=== PATIENT | male | born 1945 | race Caucasian/White ===

== ENCOUNTER 2019-03-20 13:41 | Outpatient (CLI) | payer MEDICARE, SELFPAY ==
--- NOTE | ~2019-03-20 | XR_ITS ---
EXAMINATION: XR lg joint inject/asp w image EXAM DATE: 03/20/2019 14:59 INDICATION: Left hip pain. TECHNIQUE: A time-out was performed to verify the patient's name, date of , and procedure to b e performed. The procedure including the risks, benefits and alternatives were discussed with the pat ient. Risks discussed included bleeding and infection. The patient understood the risks and agreed to proceed. The skin overlying the left hip joint was prepped and draped in usual sterile fashion. Ane sthetic was administered with 2 milliliters 1% lidocaine subcutaneously. A 22 G needle was advanced under fluoroscopic guidance into the joint. Total of 2 mL of Omnipaque 240 confirmed intra-articul ar position of the needle. Subsequently, injectate consisting of 80 mg Depo-Medrol, 2 cc 0.5% bupiva kaitlynn was instilled. The needle was removed and the entry site was cleaned and dressed. There were no immediate complications. The DAP for this procedure was 0.3 Gycm2. The procedure was performed on 03/20/2019. FINDINGS: Real-time fluoroscopy demonstrates the needle and contrast in the left hip joint. Preprocedure pain level reported 8/10. Postprocedure pain level reported 5/10. IMPRESSION: Successful left hip joint injection. Reviewed, dictated and finalized at location A. PRESIDENT PAYMENT
== END 2019-03-20 13:42 | disposition home or self-care (01) ==
PROVIDERS: PCP Internal Medicine; Visit Provider Orthopaedic Surgery
DX: M16.12 Unilateral primary osteoarthritis, left hip (principal)
CPT/HCPCS: 20610; 77002; J1040; Q9966

== ENCOUNTER 2020-04-15 15:01 | Outpatient (CLI) | payer MEDICARE, SELFPAY | END 2020-04-15 15:02 | disposition home or self-care (01) | LOC: ANHCOVIDVC 15:01 | PROVIDERS: PCP Internal Medicine | DX: Z23 Encounter for immunization (principal) | CPT/HCPCS: 0001A; 91300 ==

== ENCOUNTER 2020-05-03 10:43 | Outpatient (CLI) | payer MEDICARE, SELFPAY ==
--- NOTE | ~2020-05-03 | XR_ITS ---
XR_CERV2-3V_CR DATE: 05/03/2020 10:58 INDICATION: Neck pain. No injury. TECHNIQUE: AP, open-mouth, lateral views COMPARISON: None FINDINGS: There is straightening of the cervical spine. C1 and C2 are normally aligned and the odontoid process is intact. No fracture or dislocation or lock ed facet or prevertebral soft tissue swelling is detected. There is minimal anterolisthesis at C2-3 and C5-6. There is moderate to moderately severe degenerative disc disease at C3-4 through C7-T1. There is degenerative change of the apophyseal joints. IMPRESSION: Straightening Cervical spondylosis Reviewed, dictated and finalized at Location A. Reviewed, dictated and finalized at location B.
== END 2020-05-03 10:44 | disposition home or self-care (01) ==
LOC: ANHIMG 10:46
PROVIDERS: PCP Internal Medicine; Visit Provider Nurse Practitioner
DX: M47.812 Spondylosis without myelopathy or radiculopathy, cervical region (principal)
CPT/HCPCS: 72040

== ENCOUNTER 2020-05-06 15:18 | Outpatient (CLI) | payer MEDICARE, SELFPAY | END 2020-05-06 15:19 | disposition home or self-care (01) | LOC: ANHCOVIDVC 15:18 | PROVIDERS: PCP Internal Medicine | DX: Z23 Encounter for immunization (principal) | CPT/HCPCS: 0002A; 91300 ==

== ENCOUNTER 2020-06-08 08:00 | Outpatient (RCR) | payer MEDICARE, SELFPAY ==
--- NOTE | 2020-05-11 10:09 | PTOPEVAL ---
PHYSICAL THERAPY EVALUATION AND PLAN OF CARE 05-11-20 Thank you for referring Doron Harley to [facility] for the diagnosis of cervicalgia. ? He is scheduled to be seen for therapy? 2 x/week for 4 weeks. Please review, sign, date and return this plan of care CARLOS EDUARDO. I agree with and certify that the following plan of care is medically necessary. Referring Physician Date Attending Provider: Maikel Jj DO Referring Provider: TONY Eddy PT Outpatient Evaluation Document 05/11/20 09:00 JANNETH (Rec: 05/11/20 10:09 JANNETH [id number]) Outpatient Past Medical History Past Medical History Source of Past Medical History Patient Neurological History Hx Neurological Disorders No Significant History Cardiovascular History Hx Hypertension Yes: meds Respiratory History Hx Respiratory Disorders No Significant History Gastrointestinal History Hx Gastrointestinal Disorders No Significant History Musculoskeletal History Hx Spinal Surgery Yes: cervical disc removed > 30 yr ago Endocrine History Hx Diabetes Yes: meds HEENT History Hx Other HEENT Disorders Yes: hearing aides, glasses Other History Hx Other Surgeries Yes: 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,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 Evaluation Information Problem Diagnosis cervicalgia Onset April Subjective Information gradual increase in pain, has Query Text:As Reported By Patient/ been helping his due to Family her disability, he has to assist her and move her; pain he has is like pain he had previously when had neck surgery; Diagnostic Tests X-Rays For This Problem Yes: straightening of curve, mod to severe DDD C 3-4 thru C7-T1 Previous Treatments Previous Treatments For This Problem no PT Prior Level of Function Activity Level (Last 3 Months) 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
--- NOTE | 2020-06-08 08:35 | PTOPEVAL ---
PHYSICAL THERAPY DISCHARGE 06-08-20 Refer to the clinical summary below for his status with today's discharge, compared to initial eval. The PT goals were achieved. Discharge PT services at this time. Thank you for referring Doron Harley to [facility].? Please review, sign, date and return this Discharge report CARLOS EDUARDO. I agree with and certify that the following plan of care is medically necessary. Referring Physician Date Attending Provider: Maikel Jj DO Document 06/08/20 08:00 JANNETH (Rec: 06/08/20 08:35 JANNETH [id number]) Assessment Status Discharge Subjective Information Doron reports: is doing better Query Text:As Reported By Patient/ ; can do all his home chores Family and go all day without stopping due to neck pain; doing home exercises; not taking any medicine for neck pain; agree to discharge from PT services; Pain Assessment Timing of Pain Assessment Timing of Pain Assessment Assessment Pain Scale Pain Scale Used Numeric (1 - 10) Self Report Pain Assessment Bilateral Spine, Cervical Reported Pain Level 0 Pain Description Aching,Dull,Sharp Pain Frequency Chronic,Intermittent Lowest Pain Intensity 0 Greatest Pain Intensity 4 Pain Behaviors None Pain Score Pain Score 0: Self Report Additional Pain Score Comments sleeping OK and not having any problems doing things at home ; Oswestry self assessment functional score of 6% limitation have not been doing much lifting, to protect neck and not make it flare up; discussed/reviewed options for pain management: rest, heat, stretching, use of Theracane/ self massage tool for tight muscles; pt voiced understanding; Interventions Used Interventions Used By Clinicians Education,Exercise Upper Extremity Range of Motion General Upper Extremity Range of Motion Gross Upper Extremity Range of Motion standing R shoulder flexion Comments 125', abduction 130'; IR- reach behind back, palm to waist; ER- reach palm to back of head; no pain with shoulder motions; cervical: active rotation R & L 40', without pain, but
== END 2020-06-08 10:38 | disposition home or self-care (01) ==
LOC: ANHPT 08:00
PROVIDERS: PCP Internal Medicine; Visit Provider Internal Medicine
DX: M54.2 Cervicalgia (principal)
CPT/HCPCS: 97014; 97110; 97140; 97162; G0283

== ENCOUNTER → 2021-01-13 04:14 | Outpatient (CLI) | payer MEDICARE, SELFPAY ==
[2021-01-13 17:37] LABS: SARS-CoV-2 RNA PCR Negative
== END ==
PROVIDERS: PCP Internal Medicine; Visit Provider Internal Medicine
DX: Z20.822 Contact with and (suspected) exposure to COVID-19 (principal)
CPT/HCPCS: C9803; U0003; U0005

== ENCOUNTER 2022-09-01 00:22 | Day surgery (SDC) | payer MEDICARE, SELFPAY ==
[2022-08-22 13:19] VITALS: BMI 26.2
--- NOTE | 2022-09-01 07:32 | WPDANESEPPF ---
Anes - Initial Pre Proc Eval Procedure: Operation Date: 09/01/22 08:30 Proposed Procedures p Screening Colonoscopy - Tao Benavides MD Date/Time: 09/01/22 07:32 Surgeon: Tao Benavides MD Pre Op Diagnosis: neoplasm screening Patient Data Age: 77 Gender: M Height: 1.7 m Weight: 76 kg Allergies Allergy/AdvReac Type Severity Reaction Status Date / Time No Known Allergies Allergy Verified 09/01/22 07:40 Home Medications Medication Instructions Recorded Confirmed Type aspirin 81 mg tablet,delayed 81 mg PO DAILY 04/25/19 08/22/22 History release (Adult Low Dose Aspirin) blood-glucose meter (OneTouch #1 ea 04/25/19 12/28/21 Rx Verio Flex Start kit) lancets #300 ea 11/03/19 12/28/21 Rx blood sugar diagnostic (OneTouch See Rx Instructions .Route 10/18/21 07/19/22 Rx Verio test strips) .COMPLEX #300 ea clotrimazole 1 % topical ointment 1 applic topical BID PRN balanitis 06/28/22 08/22/22 Rx #56.7 grams sodium,potassium,mag sulfates 17.5 See Rx Instructions PO .COMPLEX 08/01/22 Rx gram-3.13 gram-1.6 gram oral soln #354 mL (Suprep Bowel Prep Kit) atorvastatin 40 mg tablet 40 mg PO EVERY OTHER DAY 08/22/22 08/22/22 History glipizide 5 mg tablet 5 mg PO TID 08/22/22 08/22/22 History insulin detemir U-100 100 unit/mL 14 unit subcut HS 08/22/22 08/22/22 History (3 mL) subcutaneous pen lisinopril 5 mg tablet 5 mg PO DAILY 08/22/22 08/22/22 History metformin 1,000 mg tablet 1,000 mg PO BID 08/22/22 08/22/22 History Patient hx anesthesia problems: none Family hx anesthesia problems: none Results Review: All pre-operative results and documents have been reviewed as part of the pre-operative evaluation. [facility] Past Medical History Medical History (Updated 07/20/22 @ 00:01 by Background Damelissa) BPH (benign prostatic hyperplasia) Chronic GERD Controlled diabetes mellitus without complication, with long-term current use of insulin Essential hypertension, benign Other and unspecified hyperlipidemia Family History Family History Sibling Family history of muscular dystrophy Patient's sister is in good health Family history of lung cancer Family history of heart disease in male family member before age 55 Patient's brother is Family history of cardiovascular disease Father Family history of Alzheimer's disease Patient's father is Mother Family history of heart disease in male family member before age 55 Family history of cardiovascular disease Social History Social History Smoking packs per day: 2 Smoking cigarettes per day: 40.0 Years smoked: 30 Smoking pack-years: 60.00 Smoking status: Former smoker Tobacco type: cigarettes Second hand tobacco smoke exposure: No Smoking end date: 02/13/88 Alcohol intake: current Alcohol use details: 6-8 beers yearly Substance use: never Substance use type: does not use Lack of Transportation: No Lack of Food: Never True Current Housing: I Have Housing Concerned About Future Housing: No Difficulty Paying Gas/Electric Bills: No Difficulty Paying for Meds: No Currently Unemployed: No Education: Trade/Vocational Certificate Difficulty w/ Childcare or Family Care: No Living arrangements: with family Spiritual care concerns: No Anes - Eval Final PreProcedure Day of Procedure 09/01/22 07:32 Patient weight: overweight Heart: regular rate and rhythm Lungs: clear to auscultation and normal air movement Airway: Mallampati scale class II Neurological: alert and oriented Last oral intake: >/= 8 hours ASA classification: III Emergent: no Anesthetic plan: proceed Anesthesia type and monitoring: general GIVS Results Review: All pre-operative results and documents have been reviewed as part of the pre-operative evaluation. Informed Consent: The patient's anes
[2022-09-01 07:42] VITALS: BP 135/61; PULSE 63; RESP 20; TEMP 35.9; O2SAT 100
[2022-09-01 07:53] LABS: Glucose Point of Care 192 mg/dl (65-105)
[2022-09-01] MEDS: LACTATED RINGERS 1,000 ML 150 ML IV CONT (08:01)
--- NOTE | 2022-09-01 08:10 | PM.HPGS ---
History of Present Illness History of Present Illness Consent: Risks, benefits, and alternatives have been discussed and questions answered. Patient agrees to proceed with procedure. Chief complaint: neoplasm screening Narrative: Doron Harley is a 77 year old male Presents for screening colonoscopy. Patient's current weight appetite and bowel movements are normal. Patient denies abdominal pain. He has had no bleeding. Family history is significant for is a different kinds of cancer within the family. Old records reflect that his sister may have had a malignant colon polyp removed in the past. Patient states his own bowel habits are normal with no pain or bleeding. He presents today for neoplasia screening colonoscopy. Review of Systems Review of Systems: Review of systems noncontributory. [facility] Past Medical History Medical History (Updated 07/20/22 @ 00:01 by Christian Awan) BPH (benign prostatic hyperplasia) Chronic GERD Controlled diabetes mellitus without complication, with long-term current use of insulin Essential hypertension, benign Other and unspecified hyperlipidemia Family History Family History Sibling Family history of muscular dystrophy Patient's sister is in good health Family history of lung cancer Family history of heart disease in male family member before age 55 Patient's brother is Family history of cardiovascular disease Father Family history of Alzheimer's disease Patient's father is Mother Family history of heart disease in male family member before age 55 Family history of cardiovascular disease Social History Social History Smoking packs per day: 2 Smoking cigarettes per day: 40.0 Years smoked: 30 Smoking pack-years: 60.00 Smoking status: Former smoker Tobacco type: cigarettes Second hand tobacco smoke exposure: No Smoking end date: 02/13/88 Alcohol intake: current Alcohol use details: 6-8 beers yearly Substance use: never Substance use type: does not use Lack of Transportation: No Lack of Food: Never True Current Housing: I Have Housing Concerned About Future Housing: No Difficulty Paying Gas/Electric Bills: No Difficulty Paying for Meds: No Currently Unemployed: No Education: Trade/Vocational Certificate Difficulty w/ Childcare or Family Care: No Living arrangements: with family Spiritual care concerns: No Meds Home Medications and Allergies Home Medications Medication Instructions Recorded Confirmed Type aspirin 81 mg tablet,delayed 81 mg PO DAILY 04/25/19 08/22/22 History release (Adult Low Dose Aspirin) blood-glucose meter (OneTouch #1 ea 04/25/19 12/28/21 Rx Verio Flex Start kit) lancets #300 ea 11/03/19 12/28/21 Rx blood sugar diagnostic (OneTouch See Rx Instructions .Route 10/18/21 07/19/22 Rx Verio test strips) .COMPLEX #300 ea clotrimazole 1 % topical ointment 1 applic topical BID PRN balanitis 06/28/22 08/22/22 Rx #56.7 grams sodium,potassium,mag sulfates 17.5 See Rx Instructions PO .COMPLEX 08/01/22 Rx gram-3.13 gram-1.6 gram oral soln #354 mL (Suprep Bowel Prep Kit) atorvastatin 40 mg tablet 40 mg PO EVERY OTHER DAY 08/22/22 08/22/22 History glipizide 5 mg tablet 5 mg PO TID 08/22/22 08/22/22 History insulin detemir U-100 100 unit/mL 14 unit subcut HS 08/22/22 08/22/22 History (3 mL) subcutaneous pen lisinopril 5 mg tablet 5 mg PO DAILY 08/22/22 08/22/22 History metformin 1,000 mg tablet 1,000 mg PO BID 08/22/22 08/22/22 History Allergies Allergy/AdvReac Type Severity Reaction Status Date / Time No Known Allergies Allergy Verified 09/01/22 07:40 Vital Signs Vital Signs - 24 hr 09/01/22 07:42 Temperature 96.7 F L Pulse Rate 63 Respiratory Rate 20 Blood Pressure 135/61 Pulse Oximetry 100 Oxygen Delivery Room Air
[2022-09-01 08:42] VITALS: BP 115/66; PULSE 71; RESP 21; O2SAT 100
[2022-09-01 08:52] VITALS: BP 112/60; PULSE 72; RESP 18; O2SAT 100
[2022-09-01 09:02] VITALS: BP 124/71; PULSE 66; RESP 22; O2SAT 100
[2022-09-01 09:03] LABS: Glucose Point of Care 163 mg/dl (65-105)
== END 2022-09-01 09:12 | disposition home or self-care (01) ==
PROVIDERS: PCP Family Medicine; Visit Provider Internal Medicine Gastroenterology
PROC: 0DJD8ZZ Inspection of Lower Intestinal Tract, Via Natural or Artificial Opening Endoscopic (ICD-10-PCS; CPT 45378; principal; 2022-09-01 08:30)
DX: Z12.11 Encounter for screening for malignant neoplasm of colon (principal); K64.8 Other hemorrhoids; K57.32 Diverticulitis of large intestine without perforation or abscess without bleeding; D12.3 Benign neoplasm of transverse colon; I10 Essential (primary) hypertension; E11.9 Type 2 diabetes mellitus without complications; K21.9 Gastro-esophageal reflux disease without esophagitis; E78.49 Other hyperlipidemia; N40.0 Benign prostatic hyperplasia without lower urinary tract symptoms; Z79.4 Long term (current) use of insulin; Z79.84 Long term (current) use of oral hypoglycemic drugs; Z79.82 Long term (current) use of aspirin; Z87.891 Personal history of nicotine dependence
CPT/HCPCS: 45385; 82948; 88305; J2704; J7120

== ENCOUNTER 2025-01-13 16:12 | Outpatient (CLI) | payer MEDICARE, SELFPAY ==
--- NOTE | ~2025-01-13 | XR_ITS ---
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 Technique: 2 views obtained. Findings: Elevation of the right hemidiaphragm otherwise the lungs are clear. No pneumothorax. Heart is normal size. Mediastinal and hilar contours are within normal limits. Bony thorax no acute abnormality. Impression: No acute cardiopulmonary abnormality. Reviewed, dictated and finalized at location P. Y DEPOSITING MACHINE OPERATOR Impression: No acute cardiopulmonary abnormality.
--- OUTSIDE RECORDS SUMMARY | 2025-01-13 16:58 | XMS_ITS | Clinical Summary ---
Author Organization [facility] Address [address] [place] [address] Care Team Providers Care Stave Hewer Name Role Phone Pcp, Andree Donahue [facility] Primary Care Provide r Unavailable Source Comments [facility],non-owned Affiliates and Associated Physician Practices is amultiple site organization consisting of ambulatory clinics and hospital sitesin [place], [place], [place] and [place]. This disclosure is being madepursuant to the Care Everywhere program and may not contain all informatio navailable regarding this patient. Last updated 17.[facility] Allergies No known active allergies Medications * Be aware that medications may not be up to date on this document. Alwaysverify current medications with the patient. Multiple Vitamin (MULTI-VITAMIN) TABSIndications:T ype II or unspecified type diabetes mellitus without mention of complication, not stated as uncontrolled (HCC) Take by mouth. Active ranitidine (ZANTAC) 150 MG tablet Take 1 Tab by mouth 2 times daily. 180 Tab 4 05/10/2010 Active glipiZIDE (GLUCOTROL) 5 MG tablet Take 1 Tab by mouth daily before breakfast. 90 Tab 0 05/11/2010 Active lisinopril (PRINIVIL;ZESTRIL ) 5 MG tablet Take 1 Tab by mouth daily. 90 Tab 0 05/11/2010 Active pravastatin (PRAVACHOL) 40 MG tablet Take 1 Tab by mouth at bedtime. LAST FILL PT NEEDS LABS IN July Tab 0 08/08/2010 Active sitagliptin-metfo rmin (JANUMET) 50-1000 MG tabletIndications :Type II or unspecified type diabetes mellitus without mention of complication, not stated as uncontrolled (HCC) Take 1 Tab by mouth 2 times daily. 180 Tab 0 11/18/2010 Active Active Problems Problem Noted Date Diagnosed Date Type II or unspecified type diabetes mellitus without mention of complication, not stated as uncontrolled 07/28/2008 Pure hypercholesterolemia 07/28/2008 Other and unspecified hyperlipidemia 07/28/2008 Esophageal reflux 07/28/2008 Benign prostatic hyperplasia 07/28/2008 Overview (08/05/2016): IMO Update 08/12/2016 CAD (coronary artery disease) 07/28/2008 CHF (congestive heart failure) 07/28/2008 Social History Tobacco Use Types Packs/Day Years Used Date Smoking Tobacco: Former Cigarettes 0 Q uit: 07/30/1983 Alcohol Use Standard Drinks/Week Comments No 0 (1 standard drink = 0.6 oz pur e alcohol) Sex and Gender Information Value Date Recorded Sex Assigned at Not on file Legal Sex Male 6:06 AM [employer] Gender Identity Not on file Sexual Orientation Not on file Last Filed Vital Signs Vital Sign Reading Time Taken Comments Blood Pressure 128/80 05/10/2010 11:11 AM CDT Pulse - - Temperature - - Respiratory Rate - - Oxygen Saturation - - Inhaled Oxygen Concentration - - Weight 75.8 kg (167 lb) 05/10/2010 10:58 AM CDT Height 170.2 cm (5' 7) 05/10/2010 10:58 AM CDT Body Mass Index 26.16 05/10/2010 10:58 AM CDT Plan of Treatment Health Maintenance Due Date Last Done Comments DTAP/TDAP/TD VACCINES (1 - Tdap) 1964 PNEUMOCOCCAL VACCINE 50+ (1 of 2 - PCV) 1964 ZOSTER VACCINE (1 of 2) 05/28/1995 Respiratory Syncytial Virus (RSV) Vaccine Pt: or over 60 yrs (1 - 1-dose 75+ series) 2020 DEPRESSION SCREENING 02/13/2024 MEDICARE AWV CALENDAR YEAR 2024 COVID-19 VACCINE (1 - 2024-2 6 season) 2024 INFLUENZA VACCINE (#1) 2024 HEPATITIS B VACCINE Aged Out No longe r eligible based on patient's age to complete this topic HIB VACCINE Aged Out No longer eligi ble based on patient's age to complete this topic HPV VACCINE Aged Out No longer eligi ble based on patient's age to complete this topic MENINGOCOCCAL (Group B) VACC INE SHARED DECISION-MAKING Aged Out No longer eligibl e based on patient's age to complete this topic MENINGOCOCCAL GROUPS A/C/Y/W VACCINE Aged Out No longer eligible b ased on patient's age to complete this topic Insurance AENA MEDICARE ADV Care Teams Stave Hewer Relationship Specialty Start Date End Date Andree Ramires-Bernardo PCP - General 09/08/22
--- OUTSIDE RECORDS SUMMARY | 2025-01-13 16:58 | XMS_ITS | Clinical Summary ---
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 180 Tab 3 2 Active pravastatin (PRAVACHOL) 40 mg Oral tabletIndications:T ype II or unspecified type diabetes mellitus without mention of complication, not stated as uncontrolled,Essent ial hypertension, benign,Other and unspecified hyperlipidemia Take 2 Tabs by mouth Daily LATE. 180 Tab 3 2 Active lisinopril (PRINIVIL) 5 mg Oral tabletIndications:T ype II or unspecified type diabetes mellitus without mention of complication, not stated as uncontrolled,Essent ial hypertension, benign,Other and unspecified hyperlipidemia Take 1 Tab by mouth daily. 90 Tab 3 2 Active sitaGLIPtin-MetFORM IN (JANUMET) 50-1,000 mg Oral tabletIndications:T ype II or unspecified type diabetes mellitus without mention of complication, not stated as uncontrolled Take 1 Tab by mouth 2 times daily. 180 Tab 3 3 Active Insulin [place], Disposable, (SURE-FINE PEN NEEDLES) 31 X 06/27 Misc Ndle 30 Each 6 3 Active insulin detemir (LEVEMIR FLEXPEN) 100 unit/mL subCUT InPnIndications:Typ e II or unspecified type diabetes mellitus without mention of complication, uncontrolled 5 units at hs 1 mL 0 3 Active aspirin (ECOTRIN EC) 81 mg Oral TbECIndications:Oth er nonspecific abnormal finding of lung field Take 81 mg by mouth daily. Active Active Problems Problem Noted Date Diagnosed Date Atherosclerosis of aorta 10/02/2012 Type II or unspecified type diabetes mellitus without mention of complication, uncontrolled 03/25/2012 Long-term insulin use 03/25/2012 Erectile dysfunction 10/10/2011 Essential hypertension, benign 12/20/2010 Other and unspecified hyperlipidemia 12/20/2010 GERD (gastroesophageal reflux disease) 1 Resolved Problems Problem Noted Date Diagnosed Date Resolved Date Type II or unspecified type diabetes mellitus without mention of complication, not stated as uncontrolled 12/20/2010 03/25/2012 Immunizations Immunization Administration Dates Next Due (PNEUMOVAX 23)(50 YRS UP) PN EUMOCOCCAL POLYSACCHARIDE (PPV23) 0.5 ML, IM 12/20/2010 Influenza Vaccine High Dose 65+ Yrs IM 3 Zoster Vaccine Live SQ 07/01/2012 Family History Medical History Relation Name Comments Cancer Sister 1 INTESTINE Hypertension Sister 2 Asthma Neg Hx Bronchitis Neg Hx Diabetes Neg Hx Emphysema Neg Hx Heart Failure Neg Hx Lung Cancer Neg Hx Mesothelioma Neg Hx Tuberculosis Neg Hx Relation Name Status Comments Father Mother Sister 1 Sister 2 Social History Tobacco Use Types Packs/Day Years Used Date Smoking Tobacco: Former Cigarettes 0 Q uit: 02/12/1985 Alcohol Use Standard Drinks/Week Comments Yes 0 (1 standard drink = 0.6 oz pur e alcohol) Social Sex and Gender Information Value Date Recorded Sex Assigned at Not on file 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 Gender Identity Not on file Sexual Orientation Not on file Occupation Industry Job Start Date Job End Date Not on file Not on file Not on file Not on file Not on file Not on file Not on file Not on file Last Filed Vital Signs Vital Sign Reading Time Taken Comments Blood Pressure 108/74 12/25/2012 9:11 AM DIRECTOR OF [employer] Pulse 60 12/25/2012 9:11 AM [employer]OR [employer] Temperature 36.3 C (97.4 F) 10/01/2012 10:04 AM CDT Respiratory Rate 16 12/25/2012 9:11 AM [employer] OF [employer] Oxygen Saturation 97% 12/25/2012 9:11 AM [employer]OR OF [employer] RA Inhaled Oxygen Concentration - - Weight 73 kg (161 lb) 12/25/2012 9:11 AM [employer] Height 170.2 cm (5' 7) 12/25/2012 9:11 AM [employer]OR [employer] Body Mass Index 25.22 12/25/2012 9:11 AM [employer]OR OF [employer] Plan of Treatment Health Maintenance Due Date Last Done Comments DTAP/TDAP/TD VACCINES (1 - Tdap) 1964 PNEUMOCOCCAL VACCINE 50+ YEA RS (2 of 2 - PCV) 12/21/2011 12/20/2010 ZOSTER VACCINE (2 of 3) 08/26/2012 07/01/2012 DIABETES HBA1C Q 6 MONTHS 01/01/20132012, 02/26/2012, 10/10/2011, Additional history exists DIABETES ANNUAL FOOT EXAM 02/25/2013 02/26/2012, 09/2010 LDL CHOLESTEROL ANNUAL 03/25/2013 3, 04/20/2011, 12/20/2010 DIABETES ANNUAL RETINAL EXAM 04/19/201309/2012, 04/20/2011 (Previously completed), 04/19/2010 DIABETES MICROALBUMIN ANNUAL SCREEN 05/20/2013 05/20/2012, 01/19/2011 RSV VACCINE (60+ or ) (1 - 1-dose 75+ series) 2020 INFLUENZA VACCINE (#1) 2024 02/26/2012 Procedures Procedure Name Priority Date/Time Associated Diagnosis Comments POC HEMOGLOBIN A1C Routine 07/01/2012 9: 38 AM CDT Type II or unspecified type diabetes mellitus without mention of complication, uncontrolled MICROALBUMIN/CREATI NINE RATIO, RANDOM UR Routine 05/20/2012 10:01 AM CDT Type II or unspecified type diabetes mellitus without mention of complication, uncontrolled LIPID PANEL Routine 03/25/2012 10:34 AM DIRECTOR OF [employer] Other and unspecified hyperlipidemia from Last 3 Months or Most Recently Relevant to Health Maintenance Results * POC HEMOGLOBIN A1C (07/01/2012 9:38 AM CDT) HGB A1C POC 5.5 4.0 - 6.0 % PHYSIC [facility] Capillary blood specimen (specimen) 07/01/2012 9:38 AM CDT Result [facility] Vinnie Britton MD POINT OF CARE TESTING Final Re sult [facility] * MICROALBUMIN/CREATININE RATIO, RANDOM UR (05/20/2012 10:01 AM CDT) MICROALBUMIN/C REAT RATIO, UR <6 0 - 29 mg/g creatinine [facility] Urine specimen (specimen) 05/20/2012 10:01 AM CDT 05/20/2012 12:40 PM CDT Comment:URINE Result [facility] Vinnie Britton MD URINE ORDERABLES Final Result Performing Organization Address [facility] Co de Phone Number [facility] CLIA# [id number] [address] [place] [address] * LIPID PANEL (03/25/2012 10:34 AM DIRECTOR OF [employer]ING SAL[employer]) Pathologist [facility] CHOLESTEROL 128 100 - 199 mg/dL [facility] TRIGLYCERIDE 60 10 - 149 mg/dL [facility] HDL 44 40 - 59 mg/dL [facility] CHOL/HDL RATIO 2.9 2.0 - 5.0 [facility] LDL CALCULATED 72 <=99 mg/dL [facility] LIPID PANEL COMMENT See Below [facility] Comment: The adult ATP and pediatric NCEP classifications for lipids are available in the Laboratory Services Policy Manual on the [facility] Intranet at: [email or web address]/ Blood specimen (specimen) 03/25/2012 10:34 AM DIRECTOR OF [employer] SAL[employer] 03/25/2012 12:19 PM [employer]OR [employer] Result [facility] us Vinnie Britton MD CHEMISTRY ORDERABLES Edited Performing Organization Address City/[facility]/ZIP Co de Phone Number [facility] CLIA# [id number] [address] [place] [address] from Last 3 Months or Most Recently Relevant to Health Maintenance Insurance MEDICARE PART A AND B [employer] BLUE ACCESS/TRUE Refund Exchange PPO
== END 2025-01-13 16:13 | disposition home or self-care (01) ==
PROVIDERS: PCP Nurse Practitioner Family; Visit Provider Nurse Practitioner Family
DX: R06.02 Shortness of breath (principal)
CPT/HCPCS: 71046